=== PATIENT | female | born 1960 | race Caucasian/White ===

== ENCOUNTER 2022-02-20 15:59 | Emergency (ER) | payer OTHER, SELFPAY ==
[2022-02-20 16:08] VITALS: BP 130/85; PULSE 86; RESP 20; TEMP 36.7; O2SAT 100
--- NOTE | 2022-02-20 16:19 | ED.URI ---
HPI - URI/Sore Throat General Chief Complaint: Upper Respiratory Infection Stated Complaint: cough sore throat diahrrea Time Seen by Provider: 02/20/22 16:20 Source: patient, RN notes reviewed and old records reviewed Mode of arrival: ambulatory Limitations: no limitations History of Present Illness HPI Narrative: 61 year old female who presents to [facility] care with 3 weeks of persistent cough and some upper right chest soreness and tightness with cough, Patient initially states that she had a sore throat and nasal congestion but that has resolved. Patient reports that she has been taking Mucinex for her symptoms, reports cough is productive at times of clear mucous. Patient denies any fevers, chills or sweats, denies any shortness of breath or any noted wheezing. She states that she has had COVID vaccinations and also flu shot, did a home COVID test which was negative.Going on vacation in a couple of weeks and wants to get well. MD elicited complaint: cough, rhinorrhea, nasal congestion and other (sinus drainage) Related Data Home Medications Medication Instructions Recorded Confirmed aripiprazole 5 mg PO DAILY 02/20/22 02/20/22 bupropion HCl 200 mg PO BID 02/20/22 02/20/22 citalopram 40 mg PO DAILY 02/20/22 02/20/22 lorazepam 1 mg PO BID PRN 02/20/22 02/20/22 ropinirole 1 mg PO DAILY 02/20/22 02/20/22 Allergies Allergy/AdvReac Type Severity Reaction Status Date / Time No Known Allergies Allergy Verified 02/20/22 16:20 Review of Systems Review of Systems: CONSTITUTIONAL: Denies fever, chills, or sweats. EYES: Denies visual changes, redness, or discharge. ENT: Denies rhinorrhea, congestion, sore throat, or otalgia, initially some sore throat and sinus congestion and drainage which has resolved. CARDIOVASCULAR: Right upper chest discomfort and tightness with cough chest,no palpitations, or edema. RESPIRATORY: Positive cough no dyspnea. GASTROINTESTINAL: Denies abdominal pain, nausea, vomiting, or diarrhea. GENITOURINARY: Denies dysuria or hematuria. SKIN: Denies rash or itching. MUSCULOSKELETAL: Denies back pain, joint pain, or myalgia. NEUROLOGIC: Denies headache, numbness, or weakness. PSYCHIATRIC: Positive for history of anxiety or depression. All systems reviewed & are unremarkable except as noted in HPI and below PMFSH Past Medical History Medical History (Updated 02/21/22 @ 15:47 by Camila Mcclendon NP) Anxiety and depression Surgical History Surgical History (Updated 02/20/22 @ 16:33 by Camila Mcclendon NP) H/O left knee surgery History of dilatation and curettage Social History Social History (Updated 02/20/22 @ 16:33 by Camila Mcclendon NP) Smoking status: Never smoker Alcohol intake: current Alcohol use details: Rare social Living arrangements: with family Gender identity (if verbalized by the patient): Female Comments At time of signature, agree with nursing past medical, surgical, social and family history. There is no relevant family history pertinent to the presenting complaint Exam Narrative: GENERAL: Well-appearing, well-nourished, and in no acute distress. HEAD: Normocephalic, atraumatic. EYES: PERRLA and EOMI. ENT: Nares clear, no rhinorrhea or epistaxis. Mucous membranes moist.TM's normal with good light reflex, throat pink with no lesions or exudates or tonsil enlargement NECK: Supple.no lymphadenopathy CHEST: Clear to auscultation. No respiratory distress.productive cough at times,SAO2 100% on room air, no tachypnea, tightness and right upper chest discomfort with cough at times. HEART: Regular rate and rhythm. No murmur heard. Normal peripheral pulses. ABDOMEN: Soft, nontender, nondistended, normal active bowel sounds. EXTREMITIES: Normal range of motion. No edema. SKIN: Warm, dry, no rash. NEURO: No focal deficits. Alert and oriented x3. Course Course Level of Care: Express Care Visit Vital Signs Vital signs: Vital Signs Temperature 36.7 C 02/20/22 16:08 P
== END 2022-02-20 16:45 | disposition home or self-care (01) ==
PROVIDERS: Emergency Provider Registered Nurse; PCP Family Medicine
DX: R05.9 Cough, unspecified (principal); J06.9 Acute upper respiratory infection, unspecified; F41.9 Anxiety disorder, unspecified; F32.A Depression, unspecified
CPT/HCPCS: 99203; G0463